=== PATIENT | female | born 1955 | race Caucasian/White ===

== ENCOUNTER → 2016-09-22 | Outpatient (CLI) | payer OTHER ==
[2016-09-22 12:48] LABS: ALT 33 U/L (9-52); AST 27 U/L (14-36); Alkaline Phosphatase 61 U/L (38-126); Anion Gap 9 mmol/L; Blood Urea Nitrogen 25 mg/dL (7-17); Calcium 9.3 mg/dL (8.4-10.2); Carbon Dioxide 30 mmol/L (22-30); Chloride 103 mmol/L (98-107); Glucose 76 mg/dL (74-99); Non-African American GFR(MDRD) >60 (>60 ml/min/1.73 sqM); Potassium 4.5 mmol/L (3.5-5.1); Sodium 142 mmol/L (137-145); Total Bilirubin 0.4 mg/dL (0.2-1.3); Total Protein 6.8 g/dL (6.3-8.2)
== END | disposition home or self-care (01) ==
LOC: LABWHC1 11:25
PROVIDERS: ATTEND Internal Medicine Endocrinology, Diabetes & Metabolism
DX: M81.0 Age-related osteoporosis without current pathological fracture (principal)
CPT/HCPCS: 36415; 80053; 82306; 83970; 84439; 84443

== ENCOUNTER → 2016-09-29 | Outpatient (CLI) | payer OTHER ==
[2016-10-02 20:43] LABS: Creatinine Urine Random 28.4 mg/dL (20.0-320.0)
== END | disposition home or self-care (01) ==
LOC: LABWHC1 14:04
PROVIDERS: ATTEND Internal Medicine Endocrinology, Diabetes & Metabolism
DX: M81.0 Age-related osteoporosis without current pathological fracture (principal); R94.6 Abnormal results of thyroid function studies
CPT/HCPCS: 36415; 82523; 84439; 84443; 84480

== ENCOUNTER → 2016-10-19 | Outpatient (CLI) | payer OTHER ==
--- NOTE | 2016-10-20 11:52 | NM ---
EXAMINATION TYPE: NM thyroid image w uptake DATE OF EXAM: 10/20/2016 11:18 AM COMPARISON: NONE HISTORY: Low TSH level per order. Additional symptoms of tremors, insomnia, palpitations, as well as changes in weight, here, and nails per patient. TECHNIQUE: After the intravenous administration of 11 mCi Tc 99m Sodium Pertechnetate, thyroid imagin g is performed 5 minutes post injection. Thyroid iodine uptake is calculated after the oral administr ation of 11 uCi I-131 capsule. FINDINGS: There is normal distribution of activity throughout the gland. The 4 hour iodine uptake is calculated at 8%, lower limits of normal. (normal range 8-14%). The 24-hour iodine uptake is calcula holden at 27% (normal range 15-35%), in the normal range. IMPRESSION: Normal thyroid scan and uptake.
== END | disposition home or self-care (01) ==
LOC: RADNMMAIN 10:20
PROVIDERS: ATTEND Internal Medicine Endocrinology, Diabetes & Metabolism
DX: R94.6 Abnormal results of thyroid function studies (principal)
CPT/HCPCS: 78014; A9528; A9512

== ENCOUNTER → 2017-02-18 | Outpatient (CLI) | payer OTHER | END | disposition home or self-care (01) | LOC: LABWHC1 13:08 | PROVIDERS: ATTEND Internal Medicine Endocrinology, Diabetes & Metabolism | DX: R94.6 Abnormal results of thyroid function studies (principal) | CPT/HCPCS: 36415; 84439; 84443; 84481 ==

== ENCOUNTER → 2017-03-29 | Outpatient (CLI) | payer OTHER ==
--- NOTE | 2017-03-29 15:38 | US ---
EXAMINATION TYPE: US kidneys/renal and bladder DATE OF EXAM: 03/29/2017 COMPARISON: NONE CLINICAL HISTORY: N30.20 CHR CYSTICITIS,N39.0 UTI. Chronic cystitis, frequent UTI's EXAM MEASUREMENTS: Right Kidney: 7.6 x 3.9 x 4.2 cm Left Kidney: 9.6 x 5.8 x 5.1 cm Right Kidney: measuring smaller than left kidney possibly due to inferior pole obscured by overlying bowel gas, otherwise visualized portions wnl Left Kidney: wnl Bladder: debris seen within dependent portion Bilateral Jets seen: yes IMPRESSION: 1. No suspicious acute findings. 2. Possible debris within the dependent urinary bladder.
== END | disposition home or self-care (01) ==
LOC: RADUSWWP 14:10
PROVIDERS: ATTEND Urology
DX: N39.0 Urinary tract infection, site not specified (principal)
CPT/HCPCS: 76770

== ENCOUNTER → 2017-09-07 | Outpatient (CLI) | payer OTHER ==
[2017-09-07 15:06] LABS: ALT 30 U/L (9-52); AST 26 U/L (14-36); Albumin 4.1 g/dL (3.5-5.0); Alkaline Phosphatase 63 U/L (38-126); Anion Gap 7 mmol/L; Blood Urea Nitrogen 26 mg/dL (7-17); Calcium 9.8 mg/dL (8.4-10.2); Carbon Dioxide 30 mmol/L (22-30); Chloride 100 mmol/L (98-107); Glucose 90 mg/dL (74-99); Potassium 5.2 mmol/L (3.5-5.1); Sodium 137 mmol/L (137-145); Total Bilirubin 0.2 mg/dL (0.2-1.3); Total Protein 6.5 g/dL (6.3-8.2)
[2017-09-07 19:18] LABS: Vitamin D 25 Hydroxy 46.5 ng/mL (30.0-100.0)
[2017-09-07 20:47] LABS: Parathyroid Hormone Intact 41.1 pg/mL (14.0-72.0)
[2017-09-10 17:42] LABS: Creatinine Urine Random 39.5 mg/dL (20.0-320.0)
== END | disposition home or self-care (01) ==
LOC: LABWHC1 14:21
PROVIDERS: ATTEND Internal Medicine Endocrinology, Diabetes & Metabolism
DX: M81.0 Age-related osteoporosis without current pathological fracture (principal)
CPT/HCPCS: 36415; 80053; 82306; 82523; 83970; 84443

== ENCOUNTER → 2018-03-10 | Outpatient (CLI) | payer OTHER ==
[2018-03-10 15:21] LABS: Albumin 4.2 g/dL (3.5-5.0); Calcium 9.8 mg/dL (8.4-10.2); Total Bilirubin 0.3 mg/dL (0.2-1.3); Total Protein 6.4 g/dL (6.3-8.2)
[2018-03-10 19:24] LABS: Vitamin D 25 Hydroxy 37.1 ng/mL (30.0-100.0)
== END | disposition home or self-care (01) ==
LOC: LABWHC1 14:36
PROVIDERS: ATTEND Internal Medicine Endocrinology, Diabetes & Metabolism
DX: E05.90 Thyrotoxicosis, unspecified without thyrotoxic crisis or storm (principal); M81.0 Age-related osteoporosis without current pathological fracture
CPT/HCPCS: 36415; 80053; 82306; 82523; 83970; 84443; 84445

== ENCOUNTER → 2018-07-25 | Outpatient (CLI) | payer OTHER ==
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
== END | disposition home or self-care (01) ==
LOC: RADBDWWP 07:05
PROVIDERS: ATTEND Internal Medicine Endocrinology, Diabetes & Metabolism
DX: M81.0 Age-related osteoporosis without current pathological fracture (principal)
CPT/HCPCS: 77080

== ENCOUNTER → 2018-09-13 | Outpatient (CLI) | payer OTHER ==
[2018-09-14 00:56] LABS: Albumin 4.3 g/dL (3.80-4.90); Albumin/Globulin Ratio 2.26 (1.60-3.17); Anion Gap 9.2 mmol/L (4.00-12.00); Calcium 9.4 mg/dL (8.7-10.3); Carbon Dioxide 29.8 mmol/L (21.6-31.8); Globulin 1.9 g/dL (1.6-3.3); Potassium 5.1 mmol/L (3.5-5.5); Total Bilirubin 0.2 mg/dL (0.3-1.2); Total Protein 6.2 g/dL (6.2-8.2)
[2018-09-14 01:01] LABS: Vitamin D 25 Hydroxy 42.3 ng/mL (30.0-100.0)
[2018-09-14 01:14] LABS: Parathyroid Hormone Intact 33.3 pg/mL (14.0-72.0)
== END ==
LOC: LABWHC1 15:32
PROVIDERS: ATTEND Internal Medicine Endocrinology, Diabetes & Metabolism
DX: M81.0 Age-related osteoporosis without current pathological fracture (principal)
CPT/HCPCS: 36415; 80053; 82306; 82523; 83970; 84443

== ENCOUNTER → 2018-11-24 | Outpatient (CLI) | payer OTHER ==
[2018-11-24 14:35] LABS: HCT 36.2 % (34.0-46.0); HGB 11.9 gm/dL (11.4-16.0); MCH 31.2 pg (25.0-35.0); MCHC 32.8 g/dL (31.0-37.0); Mean Platelet Volume 6.9; Platelet Count 275 k/uL (150-450); RBC 3.82 m/uL (3.80-5.40); RDW 13.6 % (11.5-15.5); WBC 5.2 k/uL (3.8-10.6)
[2018-11-24 14:59] LABS: ALT 31 U/L (9-52); AST 25 U/L (14-36); Albumin 4.6 g/dL (3.5-5.0); Alkaline Phosphatase 76 U/L (38-126); Anion Gap 9 mmol/L; Blood Urea Nitrogen 20 mg/dL (7-17); Calcium 9.9 mg/dL (8.4-10.2); Carbon Dioxide 27 mmol/L (22-30); Chloride 101 mmol/L (98-107); Glucose 87 mg/dL (74-99); Potassium 5.2 mmol/L (3.5-5.1); Sodium 137 mmol/L (137-145); Total Bilirubin 0.4 mg/dL (0.2-1.3)
== END ==
LOC: LABPAT 14:15
PROVIDERS: ATTEND Podiatrist Foot & Ankle Surgery
DX: Z01.812 Encounter for preprocedural laboratory examination (principal)
CPT/HCPCS: 36415; 80053; 85027

== ENCOUNTER 2018-12-07 12:35 | Day surgery (SDC) | payer OTHER ==
[2018-12-02 15:52] VITALS: BMI 28.1
[~2018-12-07 12:35] MED LIST: DEXAMETHASONE SOD PHOSPHATE 10 MG/ML 1 ML VIAL IV ONE; HYDROmorphone 0.5 MG/0.5 ML SYRINGE IVP PRN; LACTATED RINGERS 1,000 ML IV SCH; LIDOCAINE 1% 20 ML VIAL (10MG/ML) FOR IV START INTRADERMA PRN; MIDAZOLAM 2 MG/2 ML VIAL IV PRN; ONDANSETRON 4 MG/2 ML VIAL IVP ONE; Pre Op ABX Message 1 EACH MISC MISCELLANE ONE; SCOPOLAMINE 1.5MG/72HR PATCH TRANSDERM ONE
[2018-12-07 13:41] VITALS: TEMP 97.6
[2018-12-07] MEDS ORDERED: ETHYL CHLORIDE 103.5 ML SPRAY TOPICAL STA (14:11)
[2018-12-07] MEDS ORDERED: PROPOFOL 10 MG/ML 20 ML VIAL IV ONE (14:20)
[2018-12-07] MEDS ORDERED: MIDAZOLAM 2 MG/2 ML VIAL ONE (14:20)
[2018-12-07] MEDS ORDERED: fentaNYL (PF) 50 MCG/ML 2 ML AMP ONE (14:20)
[2018-12-07] MEDS ORDERED: ceFAZolin 1,000 MG VIAL ONE (14:20)
[2018-12-07] MEDS ORDERED: KETAMINE 10 MG/ML 20 ML VIAL ONE (14:20)
[2018-12-07] MEDS ORDERED: SODIUM CHLORIDE 0.9% 50 ML with ceFAZolin 2,000 MG IV ONE ×2 (14:23)
[2018-12-07] MEDS ORDERED: BUPIVACAINE (PF) 0.25% 30 ML VIAL INTRAARTIC ONE (14:34)
[2018-12-07] MEDS ORDERED: LIDOCAINE 1% INJ 10MG/ML (20 ML MDV) SQ ONE ×2 (15:17)
--- NOTE | 2018-12-07 15:59 | P.PCN ---
Date of Procedure: 12/07/18 Preoperative Diagnosis: Bone spur first metatarsal phalangeal joint area left foot line Hallux abductovalgus deformity right foot Postoperative Diagnosis: Same Procedure(s) Performed: 1. Excision of bone spur first metatarsal phalangeal joint area left foot 2. Modified Ram Navid bunionectomy right foot Anesthesia: MAC Surgeon: Antony Max Indications for Procedure: Pain with ambulation and uses shoe gear Operative Findings: Unremarkable
--- NOTE | 2018-12-07 16:07 | P.OP ---
Date of Procedure: 12/07/18 Preoperative Diagnosis: 1. Bone spur first metatarsal phalangeal joint left foot 2. Hallux abductovalgus deformity right foot Postoperative Diagnosis: Same Procedure(s) Performed: 1. Excision of bone spur first metatarsal phalangeal joint left foot 2. Modified Ram Navid bunionectomy right foot Anesthesia: MAC Surgeon: Antony Max Operative Findings: Unremarkable Description of Procedure: On the date of surgery the patient was taken to the operating room in good condition placed on the operating table in a supine position where an IV was sta rted and adequate IV anesthetic agents were utilized anesthesia was then further supplemented with approximately 1 mL of 0.5% plain Marcaine given in an infiltrative block about the first metatarsal phalangeal joint of the left foot and a Centeno block about the first ray complex of the patient's right foot Patient's feet and ankles were then prepped and draped in the usual aseptic manner Over heavy web roll padding ankle tourniquets had been placed above the malleoli of each ankle. At this point in time attention was directed to the patient's left ankle where the patient's left foot and ankle were elevated and exsanguinated of blood utilizing an Esmarch bandage and after approximately 1 minutes. A time the ankle tourniquet to the patient's left ankle was inflated to approximately 250 mmHg At this point in time attention was directed to the dorsal medial side of the first metatarsal phalangeal joint where an approximately 2 cm linear incision was made the incision was deepened via sharp dissection down through the level of the subcutaneous tissue layers all neurovascular structures encountered were identified isolated and were retracted and any bleeding vessels were clamped electrocauterized dissection was then carried deep down to the level of the capsule and periosteal structures overlying the dorsal medial side of the first metatarsal head of the patient's left foot via light palpation I could palpate a small bone spur protruding dorsally and an incision was made in the capsule and periosteal structures directly overlying this bony prominence. When the small bone spur was dissected free an osteotome and mallet was used to remove the bone spur. Surgical site was flushed with copious amounts of sterile saline solution some periosteal structures were coaptated and maintained utilizing 3-0 Vicryl simple interrupted suture as well as the subcutaneous tissue layers. The skin was then coaptated and maintained utilizing 4-0 nylon simple interrupted suture. Adaptic Kerlix fluffs four-inch conformer 4 inch Coban was then used to form a compression dressing and the ankle tourniquet to the patient's left ankle was deflated adequate hemostatic return was seen in all digits the patient's left foot. At this time attention was directed to the patient's right foot where the patient's right foot was elevated and exsanguinated of blood utilizing an Esmarch bandage and after approximately 3 minutes. A time the ankle tourniquet to the right ankle was inflated to approximately 250 mmHg at this time attention was directed to the dorsal aspect of the first metatarsal phalangeal joint where an approximately 6 cm dorsal linear incision was made the incision was deepened via sharp dissection down through the level of the subcutaneous tissue layers all neurovascular structures encountered were identified isolated and were retracted and any bleeding vessels were clamped electrocauterized. Throughout the surgical procedure copious amounts sterile saline solution was used to irrigate the surgical site. Dissection was then carried deep down to level of the capsular and periosteal structures overlying the first metatarsal phalangeal joint these were incised utilizing an inverted L incision and underscored and retracted from the underlying bone. Some periosteal structures were then incised in line with the longitudinal axis of the shaft of the proximal phalanx and underscored and retracted from the underlying bone. Lysing oscillating bone saw the hyperostosis present on the medial side of the first metatarsal head was then resected flush in line with the shaft of the first metatarsal and removed in total from the surgical site. Oscillating bone saw was then used to create a dorsal to plantar wedge osteotomy of the proximal phalanx slightly distal to the mid shaft area the encompass wedge of bone was removed in total from the surgical site. When fashioning the wedge of bone care was taken not to disrupt the lateral cortex surgical drill holes were then fashioned on either side of the osteotomy site in such a manner that they met with then an utilizing double strength 28-gauge monofilament stainless steel wire the osteotomy site was fixated and anatomically closed in opposed position. Again copious amounts of sterile saline solution was used to irrigate the surgical site. Periosteal Structures Were Then Coaptated and Maintained Utilizing Combination of 201 3-0 Vicryl Simple Interrupted Suture. Subcutaneous Tissues Were Coaptated and Maintained Utilizing 3-0 Vicryl Simple Interrupted Suture and the Skin Was Then Closed Utilizing 4-0 Nylon Simple Interrupted Suture Adaptic Kerlix Fluffs Four-Inch Conformer 4 Inch Coban Was Used To Form a Compression Dressing and the Ankle Tourniquet to the Patient's Right Foot Was Deflated area adequate hemostatic return was seen in all digits the patient's right foot and the hallux was seen to maintain a rectus position prior to applying the dressings. The patient tolerated the surgery and the anesthesia well and was taken recovery room in good postoperative condition.
[2018-12-07 16:08] VITALS: RESP 18
[2018-12-07] MEDS ORDERED: Acetaminophen-Codeine 300-30mg TAB PO ONE (16:43)
[2018-12-07 16:59] VITALS: PULSE 90
[2018-12-07 17:08] VITALS: BP 142/72
== END 2018-12-07 17:40 | disposition home or self-care (01) ==
LOC: OR 12:35
PROVIDERS: ATTEND Podiatrist Foot & Ankle Surgery
DX: M20.11 Hallux valgus (acquired), right foot (principal); M77.52 Other enthesopathy of left foot and ankle; M47.892 Other spondylosis, cervical region; G43.909 Migraine, unspecified, not intractable, without status migrainosus; I10 Essential (primary) hypertension; M48.02 Spinal stenosis, cervical region; F41.1 Generalized anxiety disorder; F33.1 Major depressive disorder, recurrent, moderate; M19.90 Unspecified osteoarthritis, unspecified site; K21.9 Gastro-esophageal reflux disease without esophagitis; M81.0 Age-related osteoporosis without current pathological fracture; E66.3 Overweight; Z68.28 Body mass index [BMI] 28.0-28.9, adult; Z87.891 Personal history of nicotine dependence; Z87.828 Personal history of other (healed) physical injury and trauma; Z87.440 Personal history of urinary (tract) infections; Z79.1 Long term (current) use of non-steroidal anti-inflammatories (NSAID); Z79.899 Other long term (current) drug therapy; Z88.1 Allergy status to other antibiotic agents; Z88.5 Allergy status to narcotic agent; Z88.8 Allergy status to other drugs, medicaments and biological substances
CPT/HCPCS: 88304; 88311; 28299; 28108; J2250; J1100; J2405; J0690; J2001; J3010; J2704

== ENCOUNTER → 2019-03-16 | Outpatient (CLI) | payer OTHER ==
[2019-03-17 00:22] LABS: African American GFR (CKD) 78.9 (60.0-200.0); Albumin 4.2 g/dL (3.80-4.90); Albumin/Globulin Ratio 2.47 (1.60-3.17); Anion Gap 4.2 mmol/L (4.00-12.00); BUN/Creat Ratio 14.44 Ratio (12.00-20.00); Calcium 9.2 mg/dL (8.7-10.3); Carbon Dioxide 31.8 mmol/L (21.6-31.8); Globulin 1.7 g/dL (1.6-3.3); Potassium 4.5 mmol/L (3.5-5.5); Total Bilirubin 0.2 mg/dL (0.2-1.2); Total Protein 5.9 g/dL (6.2-8.2)
== END | disposition home or self-care (01) ==
LOC: LABWHC1 13:45
PROVIDERS: ATTEND Internal Medicine Endocrinology, Diabetes & Metabolism
DX: M81.0 Age-related osteoporosis without current pathological fracture (principal)
CPT/HCPCS: 36415; 80053; 82306; 82523; 84443

== ENCOUNTER → 2019-08-11 | Outpatient (CLI) | payer BC ==
--- NOTE | 2019-08-11 18:30 | BD ---
EXAMINATION TYPE: Axial Bone Density DATE OF EXAM: 08/11/2019 COMPARISON: NONE CLINICAL HISTORY: 64 YR OLD FEMALE....ICD-10 CODE: N95.1 POST MENOPAUSAL, M81.0 OSTEOPOROSIS Height: 58.5 Weight: 130 FRAX RISK QUESTIONS: Family History (Parent hip fracture): YES Glucocorticoids (More than 3mos): YES (Ex: prednisone, prednisolone, methylprednisolone, dexamethasone, and hydrocortisone). RISK FACTORS HISTORY OF: NO FX SINCE THE AGE OF 50 SURG. TO NECK PART OF SPINE ONLY Family History of Osteoporosis: YES, HER MOTHER AND BROTHER, MOTHER WITH HIP FX Active: NO USES CANE, DIFFICULTY WALKING Postmenopausal woman: YES, IN HER 52 YRS OLD Lost more than 2 inches in height since high school: YES Frequent falls: UNSTEADY, USES CANE Hyperparathyroidism: NO Adrenal Insufficiency: NO MEDICATIONS: Prednisone or other steroids: YES, ON AND OFF FOR PAIN AND INFLAMMATION TO SPINE, WITH INJECTIONS ALS O Osteoporosis Medications: YES, PROLIA, FOR ABOUT 18 YRS OSTEOPOROSIS TREATMENT Additional Medications: BP MEDS, WELLBUTRIN, XANAX, REFLUX MEDS, VIT D AND CALCIUM, LYRICA, MELOXICAM Additional History: HYPERTENSION, REFLUX EXAM MEASUREMENTS: Bone mineral densitometry was performed using the [employer] System. Bone mineral density as measured about the Lumbar spine is: ----- L1-L4(G/cm2): 1.382 T Score Values are as follows: ----- L1: 2.2 ----- L2: 0.8 ----- L3: 0.7 ----- L4: 2.7 ----- L1-L4: 1.7 Bone mineral density FIRST DEXA STUDY AT [facility] Bone mineral density about the R hip (g/cm2): 0.949 Bone mineral density about the L hip (g/cm2): 0.774 T Score values are as follows: -----R Neck: 0.4 -----L Neck: -0.7 -----R Total: -0.5 -----L Total: -1.9 THIS IS HER FIRST DEXA STUDY AT [facility] FRAX%s: THERE IS A 22.9% CHANCE FOR A MAJOR OSTEOPOROTIC FX AND A 0.8% FOR HIP.....PROBABILITY FOR FX IN 10 YRS TIME IMPRESSION: Osteopenia (T Score between -2.5 and -1). There is slightly increased risk of fracture and the patient may be considered for treatment. Re-Screen 2-5 years. NOTE: T-SCORE=SD OF THE YOUNG ADULT MEAN.
== END | disposition home or self-care (01) ==
LOC: RADBDWWP 15:53
PROVIDERS: ATTEND Family Medicine
DX: M85.88 Other specified disorders of bone density and structure, other site (principal); N95.1 Menopausal and female climacteric states
CPT/HCPCS: 77080

== ENCOUNTER → 2019-08-25 | Outpatient (CLI) | payer BC ==
[2019-08-25 20:37] LABS: African American GFR (CKD) 90.3 (60.0-200.0); Albumin 4.4 g/dL (3.80-4.90); Albumin/Globulin Ratio 2.75 (1.60-3.17); Anion Gap 9.5 mmol/L (4.00-12.00); Calcium 9.1 mg/dL (8.7-10.3); Carbon Dioxide 26.5 mmol/L (21.6-31.8); Globulin 1.6 g/dL (1.6-3.3); Non-African American GFR(CKD) 77.9 (60.0-200.0); Potassium 4.6 mmol/L (3.5-5.5); Total Bilirubin 0.3 mg/dL (0.2-1.2)
== END | disposition home or self-care (01) ==
LOC: LABWHC1 12:52
PROVIDERS: ATTEND Internal Medicine Endocrinology, Diabetes & Metabolism
DX: M81.0 Age-related osteoporosis without current pathological fracture (principal)
CPT/HCPCS: 36415; 80053; 82306; 82523; 83970; 84443; 84681

== ENCOUNTER 2019-10-24 04:28 | Emergency (ER) | payer BC ==
[2019-10-24 04:39] VITALS: RESP 16; TEMP 98
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
--- NOTE | 2019-10-24 05:15 | CT ---
EXAMINATION TYPE: CT brain dennis benz DATE OF EXAM: 10/24/2019 COMPARISON: None HISTORY: Patient presents with head and neck pain after fall. CT DLP: 1322.20 mGycm Automated exposure control for dose reduction was used. Ventricles have normal size. There is no mass effect nor midline shift. There is no sign of intracran ial hemorrhage. The calvarium is intact. There is large right frontal scalp hematoma. Skull base is intact. Cervical vertebra have normal alignment. There is old anterior fusion surgery f rom C4 to C6. There is spurring anteriorly at C6-7. The facet joints are intact. There is no evidence of cervical spine fracture. IMPRESSION: Previous cervical spine fusion surgery. Spondylotic changes. No fracture seen. No acute intracranial abnormality. Right frontal scalp hematoma.
[2019-10-24 05:31] VITALS: BP 176/94; PULSE 75
== END 2019-10-24 05:34 | disposition home or self-care (01) ==
LOC: EC 04:28
DX: S09.90XA Unspecified injury of head, initial encounter (principal); K21.9 Gastro-esophageal reflux disease without esophagitis; I10 Essential (primary) hypertension; F41.9 Anxiety disorder, unspecified; F32.9 Major depressive disorder, single episode, unspecified; Z79.1 Long term (current) use of non-steroidal anti-inflammatories (NSAID); Z79.899 Other long term (current) drug therapy; Z88.1 Allergy status to other antibiotic agents; Z88.8 Allergy status to other drugs, medicaments and biological substances; Z87.891 Personal history of nicotine dependence; W18.09XA Striking against other object with subsequent fall, initial encounter
CPT/HCPCS: 70450; 72125; 99283

== ENCOUNTER → 2020-03-06 | Outpatient (CLI) | payer BC ==
[2020-03-06 19:58] LABS: African American GFR (CKD) 90.3 (60.0-200.0); Albumin 4.5 g/dL (3.80-4.90); Albumin/Globulin Ratio 2.14 (1.60-3.17); Anion Gap 7.3 mmol/L (4.00-12.00); BUN/Creat Ratio 12.5 Ratio (12.00-20.00); Calcium 10.1 mg/dL (8.7-10.3); Carbon Dioxide 27.7 mmol/L (21.6-31.8); Globulin 2.1 g/dL (1.6-3.3); Non-African American GFR(CKD) 77.9 (60.0-200.0); Potassium 4.6 mmol/L (3.5-5.5); Total Bilirubin 0.3 mg/dL (0.2-1.2); Total Protein 6.6 g/dL (6.2-8.2)
== END | disposition home or self-care (01) ==
LOC: LABWHC1 13:47
PROVIDERS: ATTEND Internal Medicine Endocrinology, Diabetes & Metabolism
DX: M81.0 Age-related osteoporosis without current pathological fracture (principal)
CPT/HCPCS: 36415; 80053; 82306; 82523

== ENCOUNTER → 2020-08-23 | Outpatient (CLI) | payer MEDICARE ==
[2020-08-23 19:43] LABS: African American GFR (CKD) 77.8 (60.0-200.0); Albumin 5.1 g/dL (3.80-4.90); Albumin/Globulin Ratio 2.55 (1.60-3.17); BUN/Creat Ratio 32.22 Ratio (12.00-20.00); Calcium 10.3 mg/dL (8.7-10.3); Non-African American GFR(CKD) 67.1 (60.0-200.0); Potassium 4.8 mmol/L (3.5-5.5); Total Bilirubin 0.5 mg/dL (0.3-1.2); Total Protein 7.1 g/dL (6.2-8.2)
== END | disposition home or self-care (01) ==
LOC: LABWHC1 11:23
PROVIDERS: ATTEND Physician Assistant
DX: Z51.81 Encounter for therapeutic drug level monitoring (principal); Z79.891 Long term (current) use of opiate analgesic
CPT/HCPCS: 36415; 80053

== ENCOUNTER → 2020-09-19 | Outpatient (CLI) | payer MEDICARE ==
[2020-09-20 01:34] LABS: African American GFR (CKD) 77.8 (60.0-200.0); Albumin 4.5 g/dL (3.80-4.90); Albumin/Globulin Ratio 3.21 (1.60-3.17); Anion Gap 10.2 mmol/L (4.00-12.00); BUN/Creat Ratio 22.22 Ratio (12.00-20.00); Calcium 9.1 mg/dL (8.7-10.3); Carbon Dioxide 28.8 mmol/L (21.6-31.8); Globulin 1.4 g/dL (1.6-3.3); Non-African American GFR(CKD) 67.1 (60.0-200.0); Potassium 5.4 mmol/L (3.5-5.5); Total Bilirubin 0.2 mg/dL (0.2-1.2); Total Protein 5.9 g/dL (6.2-8.2)
== END | disposition home or self-care (01) ==
LOC: LABWHC1 13:59
PROVIDERS: ATTEND Physician Assistant
DX: M81.0 Age-related osteoporosis without current pathological fracture (principal); Z79.891 Long term (current) use of opiate analgesic
CPT/HCPCS: 36415; 80053; 82523

== ENCOUNTER → 2020-09-27 | Outpatient (CLI) | payer MEDICARE ==
--- NOTE | 2020-09-27 14:31 | BD ---
EXAMINATION TYPE: Axial Bone Density DATE OF EXAM: 09/27/2020 COMPARISON: NONE CLINICAL HISTORY: Height: 59 Weight: 136.3 FRAX RISK QUESTIONS: Alcohol (3 or more units per day): no Family History (Parent hip fracture): yes Glucocorticoids (More than 3mos): no (Ex: prednisone, prednisolone, methylprednisolone, dexamethasone, and hydrocortisone). History of Fracture in Adulthood: no Secondary Osteoporosis: 1. Type 1 Diabetes: no 2. Hyperthyroidism: no 3. Menopause before 45: no 4. Malnutrition: no 5. Chronic liver disease: no Rheumatoid Arthritis: no Current Tobacco Use: no RISK FACTORS HISTORY OF: Surgery to Spine/Hip(right/left)/Wrist (right/left): no Family History of Osteoporosis: yes Active: sometimes Diet low in dairy products/other sources of calcium: yes Postmenopausal woman: 2006 Lost more than 2 inches in height since high school: no MEDICATIONS: Osteoporosis Medications: stopped Prolia 1 year ago Additional History: EXAM MEASUREMENTS: Bone mineral densitometry was performed using the [employer] System. Bone mineral density as measured about the Lumbar spine is: ----- L1-L4(G/cm2): 1.223 T Score Values are as follows: ----- L2: -0.7 ----- L3: -0.6 ----- L4: 1.7 ----- L1-L4: 0.4 Bone mineral density has: decreased -11.4 % since study of: 08.11.2019 Bone mineral density about the R hip (g/cm2): 0.875 Bone mineral density about the L hip (g/cm2): 0.634 T Score values are as follows: -----R Neck: -2.0 -----L Neck: -2.9 -----R Total: -1.0 -----L Total: -2.7 Bone mineral density has: decreased -10.0 % since study of: 08.11.2019 IMPRESSION: Osteoporosis (T Score less than -2.5). There is increased fracture risk and therapy is usually indicated based on age. Re-Screen 1-2 years. NOTE: T-SCORE=SD OF THE YOUNG ADULT MEAN.
== END | disposition home or self-care (01) ==
LOC: RADBDWWP 07:41
PROVIDERS: ATTEND Internal Medicine Endocrinology, Diabetes & Metabolism
DX: M81.0 Age-related osteoporosis without current pathological fracture (principal)
CPT/HCPCS: 77080

== ENCOUNTER → 2020-11-07 | Outpatient (CLI) | payer MEDICARE ==
[~2020-11-07] MED LIST changes: +DENOSUMAB 60 MG/ML 1 ML SYRINGE SQ ONE; -DEXAMETHASONE SOD PHOSPHATE 10 MG/ML 1 ML VIAL IV ONE; -HYDROmorphone 0.5 MG/0.5 ML SYRINGE IVP PRN; -LACTATED RINGERS 1,000 ML IV SCH; -LIDOCAINE 1% 20 ML VIAL (10MG/ML) FOR IV START INTRADERMA PRN; -MIDAZOLAM 2 MG/2 ML VIAL IV PRN; -ONDANSETRON 4 MG/2 ML VIAL IVP ONE; -Pre Op ABX Message 1 EACH MISC MISCELLANE ONE; -SCOPOLAMINE 1.5MG/72HR PATCH TRANSDERM ONE
[2020-11-07 09:10] VITALS: BP 138/84; PULSE 91; RESP 16; TEMP 97.8
== END ==
LOC: PROCWHC3 08:57
PROVIDERS: ATTEND Internal Medicine Endocrinology, Diabetes & Metabolism
DX: M81.0 Age-related osteoporosis without current pathological fracture (principal)
CPT/HCPCS: 96372; J0897

== ENCOUNTER → 2021-01-03 | Outpatient (CLI) | payer MEDICARE, OTHER ==
--- NOTE | 2021-01-03 12:55 | CT ---
EXAMINATION TYPE: CT hip RT wo con DATE OF EXAM: 01/03/2021 COMPARISON: None HISTORY: right hip pain CT DLP: 246.90 mGycm Automated exposure control for dose reduction was used. Unenhanced CT of the right hip was performed with bone and soft tissue window settings submitted. FINDINGS: There is no evidence for fracture or dislocation. No osseous lesion is identified. Tmdw-vk-xzvahilc d egenerative joint space narrowing is noted. There is acetabular spurring noted as well as spur format ion arising from the greater trochanter. No evidence for soft tissue mass or joint effusion. Vascular calcifications are demonstrated. IMPRESSION: CHANGES OF OSTEOARTHRITIS.
== END | disposition home or self-care (01) ==
LOC: RADCTMAIN 12:20
PROVIDERS: ATTEND Family Medicine
DX: M16.11 Unilateral primary osteoarthritis, right hip (principal)

== ENCOUNTER → 2021-01-20 | Outpatient (CLI) | payer MEDICARE, OTHER ==
--- NOTE | 2021-01-20 09:15 | CT ---
EXAMINATION TYPE: CT shoulder RT wo con DATE OF EXAM: 01/20/2021 COMPARISON: None. HISTORY: Right shoulder pain traumatic arthropathy right shoulder. CT DLP: 218.8 mGycm Automated exposure control for dose reduction was used. FINDINGS: Acromioclavicular joint shows arbk-mt-qsjafxhv narrowing greatest along the inferior posterior aspect . There is moderate superior capsular hypertrophy causing slight bulging of the superior skin surface . Tiny 2 mm ossific fragmentation from the distal acromion is present. Humeral head is high riding consistent with chronic rotator cuff tear. There is lsue-oo-iqbewbny narr owing with moderate-sized inferior medial humeral head spur. There is mild to moderate generalized at rophy of the supraspinatus muscle bulk and more mild atrophy of the infraspinatus muscle bulk. Findin gs are consistent with chronic rotator cuff tear. There is subchondral cystic change in the superior lateral aspect of the humeral head. Some anterior positioning is identified on axial images. Visualized right lung is clear. Visualized ribs are intact. IMPRESSION: As above. Suspect chronic rotator cuff tears.
== END | disposition home or self-care (01) ==
LOC: RADCTMAIN 06:35
PROVIDERS: ATTEND Orthopaedic Surgery
DX: M19.011 Primary osteoarthritis, right shoulder (principal)

== ENCOUNTER → 2021-01-30 | Outpatient (CLI) | payer MEDICARE, OTHER ==
--- NOTE | 2021-01-30 09:00 | MR ---
EXAMINATION TYPE: MR shoulder RT wo con DATE OF EXAM: 01/30/2021 COMPARISON: 06/11/2015, CT 01/20/2021 HISTORY: Rt shoulder pain TECHNIQUE: Multiplanar, multisequence imaging of the right shoulder is performed without contrast. FINDINGS: Rotator Cuff: There is a full-thickness supraspinatus tendon tear with approximately 3.9 cm of tendon retraction. There is a near full-thickness tear of the infraspinatus tendon with only a few fibers i ntact. Partial-thickness tear of the infraspinatus tendon is noted. There is a full thickness subscap ularis tendon tear with approximately 2.7 cm of tendon retraction. Acromioclavicular Joint: There are degenerative changes of the acromioclavicular joint without os acr omiale or subacromial spur. Glenohumeral Joint: There are full-thickness articular cartilage defects of the glenohumeral joint with high riding humer al head and osteophytosis. There is a glenohumeral joint effusion. Labrum: There is irregularity of the posteroinferior labrum, likely a degenerative type tear. Biceps Tendon: The long head of biceps is torn and retracted with edema. Bone marrow signal: No focal abnormal marrow signal is appreciated. Other: There is fatty atrophy of the subscapularis and supraspinatus muscles. IMPRESSION: 1. Full-thickness tears of the supraspinatus and subscapularis tendons with tendon retraction and fat ty atrophy of the muscle. 2. Long head biceps tendon is torn and retracted. 3. Near full-thickness tear of the infraspinatus tendon. 4. Degenerative changes of the acromioclavicular and glenohumeral joints with degenerative type torri l tear and glenohumeral joint effusion. High riding humeral head.
== END | disposition home or self-care (01) ==
LOC: RADMRIMAIN 07:41
PROVIDERS: ATTEND Student in an Organized Health Care Education/Training Program
DX: M75.111 Incomplete rotator cuff tear or rupture of right shoulder, not specified as traumatic (principal); M62.511 Muscle wasting and atrophy, not elsewhere classified, right shoulder; M19.011 Primary osteoarthritis, right shoulder

== ENCOUNTER → 2021-03-06 | Outpatient (CLI) | payer MEDICARE, OTHER ==
[2021-03-07 02:55] LABS: African American GFR (CKD) 77.8 (60.0-200.0); Albumin 4.1 g/dL (3.80-4.90); Albumin/Globulin Ratio 1.95 (1.60-3.17); Anion Gap 9.4 mmol/L (4.00-12.00); BUN/Creat Ratio 18.89 Ratio (12.00-20.00); Calcium 9.3 mg/dL (8.7-10.3); Carbon Dioxide 27.6 mmol/L (21.6-31.8); Globulin 2.1 g/dL (1.6-3.3); Non-African American GFR(CKD) 67.1 (60.0-200.0); Potassium 4.4 mmol/L (3.5-5.5); Total Bilirubin 0.3 mg/dL (0.3-1.2); Total Protein 6.2 g/dL (6.2-8.2)
== END | disposition home or self-care (01) ==
LOC: LABWHC1 15:21
PROVIDERS: ATTEND Internal Medicine Endocrinology, Diabetes & Metabolism
DX: M81.0 Age-related osteoporosis without current pathological fracture (principal)
CPT/HCPCS: 36415; 80053; 82306; 82523; 83970; 84443

== ENCOUNTER → 2021-05-15 | Outpatient (CLI) | payer MEDICARE, OTHER ==
[~2021-05-15] MED LIST changes: +DENOSUMAB 60 MG/ML 1 ML SYRINGE SQ NR; -DENOSUMAB 60 MG/ML 1 ML SYRINGE SQ ONE
[2021-05-15 12:53] VITALS: BP 147/80; PULSE 97; RESP 16; TEMP 98.5
== END ==
LOC: PROCWHC3 12:43
PROVIDERS: ATTEND Internal Medicine Endocrinology, Diabetes & Metabolism
DX: M81.0 Age-related osteoporosis without current pathological fracture (principal); Z87.891 Personal history of nicotine dependence; Z88.1 Allergy status to other antibiotic agents; Z88.8 Allergy status to other drugs, medicaments and biological substances
CPT/HCPCS: 96372; J0897

== ENCOUNTER → 2021-06-04 | Outpatient (CLI) | payer MEDICARE, OTHER ==
[2021-06-04 15:42] LABS: HCT 33.5 % (34.0-46.0); HGB 10.7 gm/dL (11.4-16.0); MCH 31.5 pg (25.0-35.0); MCHC 32.1 g/dL (31.0-37.0); Mean Platelet Volume 7.6; Platelet Count 325 k/uL (150-450); RBC 3.42 m/uL (3.80-5.40); RDW 13.8 % (11.5-15.5); WBC 11.4 k/uL (3.8-10.6)
[2021-06-04 15:50] LABS: INR 0.9 (<1.2); Partial Thromboplastin Time 22.3 sec (22.0-30.0); Prothrombin Time 9.7 sec (9.0-12.0)
[2021-06-04 15:51] LABS: Albumin 4.7 g/dL (3.5-5.0); Calcium 10.1 mg/dL (8.4-10.2); Potassium 4.1 mmol/L (3.5-5.1); Total Bilirubin 0.3 mg/dL (0.2-1.3); Total Protein 7.4 g/dL (6.3-8.2)
[2021-06-04 16:26] LABS: Appearance,Urine Clear (Clear); Bilirubin,Urine Negative (Negative); Blood,Urine Negative (Negative); Color,Urine Light Yellow; Glucose,Urine (UA) Negative (Negative); Ketones,Urine Negative (Negative); Leukocyte Esterase,Urine Negative (Negative); Nitrite,Urine Negative (Negative); PH, Urine 6.5 (5.0-8.0); Protein,Urine Negative (Negative); Specific Gravity,Urine 1.012 (1.001-1.035); Urobilinogen,Urine <2.0 mg/dL (<2.0)
== END | disposition home or self-care (01) ==
LOC: LABPAT 14:49
PROVIDERS: ATTEND Orthopaedic Surgery Sports Medicine
DX: Z01.818 Encounter for other preprocedural examination (principal); R00.0 Tachycardia, unspecified; Z79.01 Long term (current) use of anticoagulants
CPT/HCPCS: 36415; 80053; 81003; 85027; 85610; 85730; 87070; 93005

== ENCOUNTER 2021-06-19 11:18 | Day surgery (SDC) | payer MEDICARE, OTHER ==
[~2021-06-19 11:18] MED LIST changes: +ACETAMINOPHEN TAB 500 MG TAB PO PRN; -DENOSUMAB 60 MG/ML 1 ML SYRINGE SQ NR; +GABAPENTIN 300 MG CAP PO PRN; +HYDROmorphone 0.5 MG/0.5 ML SYRINGE IVP PRN; +LIDOCAINE 1% (10MG/ML) FOR IV START INTRADERMA PRN; +ONDANSETRON 4 MG/2 ML VIAL IVP PRN; +TRANEXAMIC ACID 1,000 MG in SODIUM CHLORIDE 0.9% 100 ML IVPB PRN
[2021-06-19] MEDS ORDERED: fentaNYL (PF) 50 MCG/ML 2 ML AMP IVP ONE (13:03)
[2021-06-19] MEDS ORDERED: MIDAZOLAM 2 MG/2 ML VIAL IVP ONE (13:03)
[2021-06-19] MEDS ORDERED: METOCLOPRAMIDE 5 MG/ML 2 ML VIAL IVP PRN (13:04)
[2021-06-19] MEDS ORDERED: hydrOXYzine pamoate 25 MG CAP PO PRN (13:04)
[2021-06-19] MEDS ORDERED: diphenhydrAMINE 25 MG CAP PO PRN (13:04)
[2021-06-19] MEDS ORDERED: SENNOSIDES-DOCUSATE SODIUM 1 EACH TAB PO PRN (13:04)
[2021-06-19] MEDS ORDERED: TEMAZEPAM 15 MG CAP PO PRN (13:04)
[2021-06-19] MEDS ORDERED: HYDROmorphone 0.5 MG/0.5 ML SYRINGE IVP PRN (13:04)
[2021-06-19] MEDS ORDERED: HYDROmorphone 0.2 MG/1 ML SYRINGE IVP PRN (13:04)
[2021-06-19] MEDS ORDERED: PROCHLORPERAZINE SUPPOSITORY 25 MG SUPP RECTAL PRN (13:04)
[2021-06-19] MEDS ORDERED: HYDROcodone/APAP 7.5-325MG 1 EACH TAB PO PRN (13:11)
--- NOTE | 2021-06-19 13:15 | P.ANPRN ---
Procedure Note - Anesthesia - Nerve Block Performed Right Interscalene Single Time Out Performed: Yes (9248) Date of Procedure: 06/19/21 (1025) Procedure Start Time: 13:03 Procedure Stop Time: 13:09 Location of Patient: PreOp Indication: Acute Post-Operative Pain, Requested by Surgeon Specifically requested for management of pain by DrNoemy: Kelvin Granda Sedation Type: Sedate with meaningful contact maintained Preparation: Sterile Prep Position: Supine Catheter: None Needle Types: Pajunk Needle Gauge: 21 Ultrasound used to visualize needle placement: Yes Ultrasound used to observe medication spread: Yes Injectate: 0.5% Ropivacaine (see comment for volume) (25cc) Blood Aspirated: No Pain Paresthesia on Injection Noted: No Resistance on Injection: Normal Image Stored and Saved: Yes Events: Uneventful and Well Tolerated
[2021-06-19] MEDS ORDERED: DEXAMETHASONE SOD PHOSPHATE 4 MG/ML 1 ML VIAL IVP ONE (13:17)
[2021-06-19] MEDS: LACTATED RINGERS 1,000 ML IV SCH ×2 (13:17→18:08)
[2021-06-19] MEDS ORDERED: NEOSTIGMINE 1 MG/ML 10 ML VIAL ONE (13:27)
[2021-06-19] MEDS ORDERED: ROPIVACAINE 5 MG/ML 30 ML VIAL ONE (13:27)
[2021-06-19] MEDS ORDERED: SUCCINYLCHOLINE CHLORIDE 100 MG/5 ML SYR IV ONE (13:27)
[2021-06-19] MEDS ORDERED: MIDAZOLAM 2 MG/2 ML VIAL ONE (13:27)
[2021-06-19] MEDS ORDERED: LIDOCAINE 1% INJ 10MG/ML (20 ML MDV) ONE (13:27)
[2021-06-19] MEDS ORDERED: SODIUM CHLORIDE 0.9% 100 ML BAG ONE (13:27)
[2021-06-19] MEDS ORDERED: fentaNYL (PF) 50 MCG/ML 2 ML AMP ONE (13:27)
[2021-06-19] MEDS ORDERED: GLYCOPYRROLATE 0.2 MG/ML 2 ML VIAL ONE (13:27)
[2021-06-19] MEDS ORDERED: ROCURONIUM 10 MG/ML (5 ML VIAL) IV ONE (13:27)
[2021-06-19] MEDS ORDERED: PHENYLEPHRINE-0.9% NACL SYG 1,000 MCG/10 ML SYRINGE ONE (13:27)
[2021-06-19] MEDS ORDERED: PROPOFOL 10 MG/ML 20 ML VIAL IV ONE (13:27)
[2021-06-19] MEDS ORDERED: TRANEXAMIC ACID 1,000 MG/10 ML VIAL ONE (13:27)
[2021-06-19] MEDS ORDERED: ceFAZolin 3,000 MG in SODIUM CHLORIDE 0.9% IRRIGATIO 3,000 ML IRRIGATION ONE (13:55)
[2021-06-19] MEDS ORDERED: VANCOMYCIN 1,000 MG VIAL MISCELLANE ONE (14:30)
[2021-06-19] MEDS ORDERED: LACTATED RINGERS 1,000 ML IV ONE (14:37)
--- NOTE | 2021-06-19 15:46 | XR ---
EXAMINATION TYPE: XR shoulder limited RT DATE OF EXAM: 06/19/2021 COMPARISON: None HISTORY: Postop right shoulder replacement TECHNIQUE: AP right shoulder FINDINGS: Right shoulder prosthesis is present with glenoid and humeral components. Postsurgical soft tissue changes are present. Catheters present. No acute fractures are present post placement. IMPRESSION: 1. No acute fracture post right shoulder replacement
--- NOTE | 2021-06-19 15:51 | OP ---
OPERATIVE REPORT DATE OF PROCEDURE: 06/19/2021. SURGEON: Kelvin Granda M.D. [employer] TECHNICIAN: Wil Browne PA-C PREOPERATIVE DIAGNOSIS: Right shoulder advanced rotator cuff arthropathy. POSTOPERATIVE DIAGNOSIS: Right shoulder advanced rotator cuff arthropathy. OPERATION: Right reverse total shoulder arthroplasty. ANESTHESIA: General endotracheal. ESTIMATED BLOOD LOSS: 100 mL. DRAINS: One deep drain. COMPLICATIONS: None apparent. DISPOSITION: Post-Anesthesia Care Unit. INDICATIONS: Isabel is a 66-year-old female with longstanding right shoulder pain. Workup including x-rays revealed advanced rotator cuff arthropathy of the right shoulder. At this point it is felt that she has failed conservative management. She would like to proceed with operative intervention. The risks of the procedure were discussed with her in detail. These risks include but are not limited to risk of infection, nerve damage, bleeding, pain, and a risk of instability in the shoulder, loosening of the implants and deep infection. There is also a small risk of deep vein thrombosis which could lead to fatal pulmonary embolism. The patient understands the risks. All of her questions with regard to the risks of the procedure were answered to her satisfaction. Appropriate informed consent was obtained. DESCRIPTION OF THE PROCEDURE: The patient was identified in the preoperative holding area. Surgical site was marked by both the patient and myself. She was given 2 grams of Ancef IV for prophylactic purposes. She was then transported to the operative suite. She was placed supine on the operating room table. General anesthetic was then administered and dosed per the anesthesia department without apparent complication. Examination under anesthesia was then performed of the right shoulder. She had passive elevation to 120 degrees. External rotation at the side was to 70 degrees. The patient was then placed into the beach chair position, well padded in preparation for surgery. Great care was taken to ensure that her cervical spine was in neutral alignment, well padded and maintained that way throughout the operative procedure. Great care was also taken to ensure that her legs were appropriately padded as well. The patient's right upper extremity was then prepped and draped in the usual sterile fashion. A standard surgical pause was undertaken to ensure that we were operating on the correct site and that appropriate preoperative antibiotics had been given. All staff in the room were in agreement and we proceeded. The acromion, AC joint, clavicle and coracoid were marked with a surgical pen. A planned incision starting at the level of the clavicle and extending distally over the deltopectoral interval approximately 1 cm lateral to the coracoid was marked with a surgical pen. The incision was then made with a 10 blade scalpel. Dissection was carried down sharply through the overlying fascia. The deltopectoral interval was then identified at the level of the clavicle. A small band retractor was then placed under the proximal deltoid. I then released the deltoid fascia on the lateral aspect of the cephalic vein. The vein was then preserved and left in its bed medially. The cephalic vein was then protected throughout the entire case. I then identified the clavipectoral fascia. This was incised proximally at the level of the coracoacromial ligament. The coracoacromial ligament was left intact. I then used my finger to spread the interval between the conjoint tendon and the subscapularis. I felt for the axillary nerve, which was readily palpable. I then cleared the subacromial and subdeltoid spaces of bursal and scar tissue. I then utilized a Chavarria retractor to hold the deltoid and expose the humeral head. The anterior capsule was intact, but the subscapularis had been chronically torn. I then proceeded to release the anterior inferior shoulder capsule. The course of the biceps tendon was identified. The capsule was then released in a lazy-S fashion approximately 1 cm medial to the biceps tendon. I then continued to release the capsule along the inferior neck in a vertical fashion to approximately the 6 o'clock position. Great care was taken to ensure that the capsule was always visualized as it was released as to avoid injuring the axillary nerve. I then brought a [place] housing quality standard inspector with the arm externally rotated and abducted. I continued to release the capsule inferomedially to approximately the 4 o'clock position. The inferior osteophytes were then removed. This was done with a rongeur. I then proceeded with preparation of the humerus. I removed all the goat's batres osteophytes. I then removed the subchondral plate from the superior aspect of the humeral head utilizing a large rongeur. I then utilized a starting reamer to gain access to the humeral canal. This was approximately 1 cm medial to the previous rotator cuff insertion and 1 cm posterior to the bicipital groove. I then prepared the humeral canal with hand reaming. I started with a 6 mm reamer and was only able to progress to a 7 mm reamer, where firm resistance was encountered. The reamer handle was then left in place. Then I utilized a humeral resection guide set at 30 degrees of retrotorsion. The cutting block was then set at the insertion of the rotator cuff. I then proceeded to osteotomize the head utilizing an oscillating saw. I removed the resection guide and completed the osteotomy. I then proceeded with trial stem placement. I broached with a size 6 broach and then a size 7 broach. A size 7 broach was tight and the 6 broach was fairly tight going in, so I left the 6 mm broach in. At this point, I did release the biceps tendon. The biceps was tenotomized at the level of the superior labrum. The shoulder was completely devoid of any rotator cuff attachment. The Bhattman retractor was then placed on the posterior glenoid rim. The arm was placed in approximately 80 degrees of abduction and in slight flexion on the [place] stand. I proceeded to remove the hypertrophic labrum to definitively identify the actual glenoid. She did have some anterior and inferior osteophytes. These were removed from the glenoid utilizing the rongeur. I then utilized a mini base plate starting guide. The central pin was placed in the center of the glenoid with approximately 10 degrees of inferior tilt. I then reamed with the mini reamer. As little reaming was done as possible as to seat the base plate securely and to preserve as much subchondral bone as possible. I then placed the real mini base plate. This was then impacted into the glenoid. The 25 mm central screw was then placed. The screw had an excellent purchase in bone. I was able to rotate her scapula through the screwdriver when it was fully seated. I then proceeded to place peripheral locking screws. I started with the inferior locking screw. This was a 5 x 25 mm screw. The posterior screw was a 5 x 15 mm screw and the superior screw was a 20 x 5 mm screw. She had a very small glenoid. The anterior screw in my opinion would have been fairly free-floating, so I did not place the anterior locking screw. I then had the assistance representative open a standard 36 mm glenosphere. I did set the offset to slightly inferiorly rotate the ball. The glenosphere was then impacted onto the mini base plate after the Goins taper had been dried. I then proceeded to trial with the real glenosphere . A standard tray and a standard poly trial were then placed. This was a fairly difficult reduction but not overly difficult. It was very stable once it was reduced. It was taken through full range of motion and was stable through full range of motion. There was no impingement noted. The conjoint tendon was of appropriate tension. The shoulder was then carefully re-dislocated. I had the assistance representative open a size 6 Biomet mini stem, a standard tray and a standard polyethylene. The stem was then impacted into the canal in approximately 30 degrees of retrotorsion. The poly was placed onto the tray on the back table and then was impacted on a dry Goins taper onto the real stem. The shoulder was then reduced again. It was a fairly difficult reduction. She was taken through a full range of motion. It was very stable. There was no impingement noted. The conjoint tendon had appropriate tension. I then also felt for the axillary nerve, which was readily palpable and uninjured. At this point time we proceeded with closure. The wound was thoroughly irrigated with sterile saline solution with antibiotic added. A deep drain was placed and brought out superiorly away from the incision. Approximately 500 mg of vancomycin powder was then placed deep. The deltopectoral interval was then closed with 0 Vicryl interrupted suture. The subcutaneous tissue was again thoroughly irrigated with sterile saline solution with antibiotic added. The remaining 500 mg of vancomycin powder was then placed subcutaneously. Subcutaneous tissue was closed with 2-0 Vicryl interrupted suture. The skin was closed with a running 3-0 Quill suture. Dermabond was applied to the incision. A sterile compressive dressing was then applied. The patient's right upper extremity was placed into a standard sling. All sponge and needle counts were deemed correct prior to closure. The patient tolerated the procedure without apparent complication. She was transferred to the recovery room in stable condition. MMODL / IJN: [id number] /
[2021-06-19] MEDS ORDERED: ACETAMINOPHEN TAB 325 MG TAB PO PRN (19:29)
[2021-06-19] MEDS ORDERED: ALPRAZolam 1 MG TAB PO PRN (19:29)
[2021-06-19] MEDS: buPROPion XL 150 MG TAB.ER.24H PO SCH (21:22)
[2021-06-19] MEDS: PREGABALIN 100 MG CAP PO SCH (21:22)
--- NOTE | 2021-06-19 21:47 | CONS ---
CONSULTATION I am covering for Dr. Bateman. DATE OF SERVICE: 06/19/2021. REASON FOR CONSULTATION: Advice regarding hypertension, GERD, and multiple medical issues requested by Orthopedic Surgery. HISTORY OF PRESENT ILLNESS: This 66-year-old woman with a past medical history of hypertension and DJD, being followed by Dr. Bateman in the outpatient setting, underwent right shoulder arthroplasty by Dr. Granda. The patient tolerated the procedure well. There is no history of any fever, rigors or chills. No history of headache, loss of consciousness, seizures at this time. PAST MEDICAL HISTORY: History of GERD, hypertension, history of DJD, history of spinal cord injury. MEDICATIONS: Medications prior to admission include vitamin D3 25 mcg p.o. daily, calcium, Tylenol, Wellbutrin XL, ibuprofen, Lyrica, multivitamin, Prolia, Xanax, Cozaar, doxycycline. Doses are noted. ALLERGIES: BIAXIN, MACROBID, CYMBALTA. FAMILY HISTORY: History of skin cancer in the family. SOCIAL HISTORY: Previous history of smoking. No current smoking or alcohol intake. REVIEW OF SYSTEMS: ENT: No diminished hearing. No diminished vision. Minimal facial swelling post surgery. CARDIOVASCULAR SYSTEM: No angina, palpitations. RESPIRATORY SYSTEM: No cough, hemoptysis. GI: No nausea, vomiting, diarrhea. : No dysuria. NERVOUS SYSTEM: No numbness, weakness. ALLERGY/IMMUNOLOGY: No asthma or hay fever. MUSCULOSKELETAL: As mentioned earlier. HEMATOLOGY/ONCOLOGY: No history of anemia. ENDOCRINE: No history of diabetes or hypothyroidism. CONSTITUTIONAL: As mentioned earlier. DERMATOLOGY: Negative. RHEUMATOLOGY: Negative. PSYCHIATRY: As mentioned earlier. PHYSICAL EXAMINATION: Patient alert and oriented x3. Pulse 70, blood pressure 133/77, respirations 16, temperature 98.4, pulse ox 96% on room air, HEENT: Conjunctivae normal. Minimal facial swelling present. NECK: No jugular venous distention. CARDIOVASCULAR: S1, S2 muffled. RESPIRATION: Breath sounds diminished at the bases. No rhonchi. No crackles. ABDOMEN: Soft, nontender. No mass palpable. LEGS: No edema. No swelling. NERVOUS SYSTEM: Diffusely weak. EXAMINATION OF THE RIGHT SHOULDER: Status post arthroplasty. LABS: COVID-19 is negative. ASSESSMENT: 1. Status post right shoulder arthroplasty. 2. Hypertension. 3. Gastroesophageal reflux disease. 4. History of degenerative joint disease. 5. History of spinal cord injury. 6. History of partial paralysis of the left leg. 7. History of lumbar epidural mass. 8. History of appendectomy. 9. History of back surgery. 10.Anxiety, depression. 11.History of nicotine dependence. RECOMMENDATIONS AND DISCUSSION: In this 66-year-old woman who presented with multiple complex medical issues, we will monitor the patient closely, continue the current medications. Resume the home medications. DVT prophylaxis. Incentive spirometry. Will follow the patient closely with you. Patient may be asked to follow up with Dr. Bateman after discharge. Thank you, Dr. Granda, for letting us participate in the care of this patient. MMODL / IJN: [id number] /
[2021-06-20] MEDS: HYDROcodone/APAP 7.5-325MG 1 EACH TAB PO PRN ×4 (01:42→17:33)
[2021-06-20] MEDS: LACTATED RINGERS 1,000 ML IV SCH ×4 (01:49→15:19)
[2021-06-20] MEDS: HYDROmorphone 0.5 MG/0.5 ML SYRINGE IVP PRN ×3 (04:57→14:00)
[2021-06-20] MEDS: PREGABALIN 100 MG CAP PO SCH ×2 (09:57→21:41)
[2021-06-20] MEDS: MULTIVITAMINS, THERA 1 EACH TAB PO SCH (09:57)
[2021-06-20] MEDS: CALCIUM CARB-VIT D 500 MG-5 MCG TAB PO SCH (09:57)
[2021-06-20] MEDS: CHOLECALCIFEROL 25 MCG (1000 IU) TABLET PO SCH (09:57)
[2021-06-20] MEDS: CALCIUM CARBONATE 500 MG CHEWABLE PO SCH (09:57)
[2021-06-20] MEDS: buPROPion XL 150 MG TAB.ER.24H PO SCH ×2 (09:57→21:41)
[2021-06-20] MEDS: LOSARTAN 25 MG TAB PO SCH (09:57)
[2021-06-20 10:38] LABS: Basophils # (A) 0.01 X 10*3/uL (0.00-0.10); Basophils % (A) 0.1 %; Eosinophils # (A) 0.01 X 10*3/uL (0.04-0.35); Eosinophils % (A) 0.1 %; HGB 9.5 g/dL (12.0-15.0); Lymphocytes # (A) 1.54 X 10*3/uL (0.90-5.00); Lymphocytes % (A) 22.2 %; MCH 31.9 pg (27.0-32.0); MCHC 31.7 g/dL (32.0-37.0); MCV 100.7 fL (80.0-97.0); Mean Platelet Volume 9.1 fL (9.5-12.2); Monocytes # (A) 0.69 X 10*3/uL (0.20-1.00); Monocytes % (A) 9.9 %; Neutrophils # (A) 4.68 X 10*3/uL (1.80-7.70); Neutrophils % (A) 67.4 %; Platelet Count 257 X 10*3/uL (140-440); RBC 2.98 X 10*6/uL (4.10-5.20); RDW 15.9 % (11.5-14.5); WBC 6.95 X 10*3/uL (4.50-10.00)
--- NOTE | 2021-06-20 10:43 | P.DS ---
Providers Expected date of discharge: 06/20/21 Attending physician: Kelvin Granda Consults: 06/19/21 13:04 Consult Physician Routine Consulting Provider: Carlton Bateman Consult Reason/Comments: post op medical management Do you want consulting provider notified?: Yes Primary care physician: Carlton Bateman - Discharge Diagnosis(es) (1) Osteoarthritis of right shoulder Patient was admitted to the OR on 06/19/2021 to undergo a right total shoulder arthroplasty. She had failed conservative measures as an outpatient and desired to proceed with elective surgery after given informed consent. She underwent the above procedure which she tolerated well without complication. Postoperative hospital course has remained without complication. On day of discharge she is afebrile, vital signs stable, labs within acceptable ranges, tolerating by mouth meds and diet, voiding without difficulty, positive flatus, denies abdominal pain or calf pain, pain is controlled on oral pain medication and has no new co mplaints. Wound is benign, neurovascular status is intact, calves are soft and nontender, abdomen soft and nontender. Review of systems is negative for numbness, tingling, fever, chills, chest pain, shortness of breath, nausea, vomiting, dizziness, headaches, slurred speech or other. Current Visit: Yes Status: Acute Procedures: Right TSA Patient Condition at Discharge: Good Plan - Discharge Summary Discharge Rx Participant: No New Discharge Prescriptions: New Doxycycline Hyclate 100 mg PO BID #10 tab Docusate [Colace] 100 mg PO BID #60 capsule HYDROcodone/APAP 7.5-325MG [[place] 7.5-325] 1 - 2 each PO Q6HR PRN #42 tab PRN Reason: Pain Ondansetron [Zofran] 4 mg PO Q8HR PRN #21 tab PRN Reason: Nausea No Action Multivitamins, Thera [Multivitamin (formulary)] 1 tab PO DAILY Calcium 500/1000 Vit D 1.5 tab PO DIRECTED Denosumab [Prolia] 60 mg SQ DIRECTED ALPRAZolam [Xanax] 1 mg PO TID PRN PRN Reason: Anxiety Losartan Potassium [Cozaar] 25 mg PO QAM Pregabalin 100 mg PO BID Cholecalciferol [Vitamin D3 (25 Mcg = 1000 Iu)] 25 mcg PO DAILY Calcium Carbonate [Calcium] 1 tab PO DAILY buPROPion HCL [Wellbutrin XL] 150 mg PO BID Ibuprofen 200 - 400 mg PO Q6H PRN PRN Reason: Pain Acetaminophen [Tylenol] 325 - 650 mg PO Q6H PRN PRN Reason: Pain Discharge Medication List ALPRAZolam [Xanax] 1 mg PO TID PRN 12/02/18 [History] Calcium 500/1000 Vit D 1.5 tab PO DIRECTED 12/02/18 [History] Denosumab [Prolia] 60 mg SQ DIRECTED 12/02/18 [History] Losartan Potassium [Cozaar] 25 mg PO QAM 12/02/18 [History] Multivitamins, Thera [Multivitamin (formulary)] 1 tab PO DAILY 12/02/18 [History] Acetaminophen [Tylenol] 325 - 650 mg PO Q6H PRN 06/18/21 [History] Calcium Carbonate [Calcium] 1 tab PO DAILY 06/18/21 [History] Cholecalciferol [Vitamin D3 (25 Mcg = 1000 Iu)] 25 mcg PO DAILY 06/18/21 [History] Ibuprofen 200 - 400 mg PO Q6H PRN 06/18/21 [History] Pregabalin 100 mg PO BID 06/18/21 [History] buPROPion HCL [Wellbutrin XL] 150 mg PO BID 06/18/21 [History] Doxycycline Hyclate 100 mg PO BID #10 tab 06/19/21 [Rx] Docusate [Colace] 100 mg PO BID #60 capsule 06/20/21 [Rx] HYDROcodone/APAP 7.5-325MG [[place] 7.5-325] 1 - 2 each PO Q6HR PRN #42 tab 06/20/21 [Rx] Ondansetron [Zofran] 4 mg PO Q8HR PRN #21 tab 06/20/21 [Rx] Follow up Appointment(s)/Referral(s): Kelvin Granda MD [STAFF PHYSICIAN] - 10 Days Activity/Diet/Wound Care/Special Instructions: Non Weight Bearing Maintain sling May shower after 3 days if no bleeding Keep wound clean and dry Take meds as directed F/U with Dr. Granda in office Discharge Disposition: HOME SELF-CARE
[2021-06-20] MEDS: ONDANSETRON 4 MG/2 ML VIAL IVP PRN (13:55)
[2021-06-21] MEDS: ONDANSETRON 4 MG/2 ML VIAL IVP PRN (00:16)
[2021-06-21] MEDS: HYDROcodone/APAP 7.5-325MG 1 EACH TAB PO PRN ×2 (00:16→06:26)
[2021-06-21] MEDS: LACTATED RINGERS 1,000 ML IV SCH ×2 (02:19)
[2021-06-21 08:29] VITALS: BP 121/69; PULSE 97; RESP 16; TEMP 98.4
--- NOTE | 2021-06-21 09:59 | P.PN ---
Progress Note - Text Progress Note Date: 06/21/21 Patient was admitted to the OR on 06/19/2021 to undergo a right total shoulder arthroplasty. She had failed conservative measures as an outpatient and desired to proceed with elective surgery after given informed consent. She underwent the above procedure which she tolerated well without complication. Postoperative hospital course has remained without complication. On day of discharge she is afebrile, vital signs stable, labs within acceptable ranges, tolerating by mouth meds and diet, voiding without difficulty, positive flatus, denies abdominal pain or calf pain, pain is controlled on oral pain medication and has no new complaints. Wound is benign, neurovascular status is intact, calves are soft and nontender, abdomen soft and nontender. Review of systems is negative for numbness, tingling, fever, chills, chest pain, shortness of breath, nausea, vomiting, dizziness, headaches, slurred speech or other. The patient's pain is better controlled on postoperative day #2. She may be discharged to home today in good condition. Please see previous discharge summary and [facility] rec for accurate list of home medications.
[2021-06-21] MEDS: CHOLECALCIFEROL 25 MCG (1000 IU) TABLET PO SCH (10:01)
[2021-06-21] MEDS: CALCIUM CARB-VIT D 500 MG-5 MCG TAB PO SCH (10:01)
[2021-06-21] MEDS: LOSARTAN 25 MG TAB PO SCH (10:01)
[2021-06-21] MEDS: PREGABALIN 100 MG CAP PO SCH (10:01)
[2021-06-21] MEDS: MULTIVITAMINS, THERA 1 EACH TAB PO SCH (10:01)
[2021-06-21] MEDS: CALCIUM CARBONATE 500 MG CHEWABLE PO SCH (10:01)
[2021-06-21] MEDS: buPROPion XL 150 MG TAB.ER.24H PO SCH (10:02)
--- NOTE | 2021-06-21 12:37 | P.PN ---
Subjective Progress Note Date: 06/20/21 Principal diagnosis: Severe osteoarthritis right shoulder Status post right total shoulder arthroplasty 66-year-old female patient with history of hypertension and severe DJD admitted to the hospital for elective right shoulder arthroplasty; patient is status post right surgery; POD #1 Objective - Vital Signs Vital signs: Vital Signs Temp 98.5 F 06/20/21 08:00 Pulse 75 06/20/21 08:00 Resp 16 06/20/21 08:00 BP 110/66 06/20/21 08:00 Pulse Ox 94 L 06/20/21 08:00 Intake & Output 06/19/21 06/20/21 06/20/21 18:59 06:59 18:59 Intake Total 1287 Output Total 100 70 30 Balance 1187 -70 -30 Weight 54.3 kg Intake: IV 1051 Oral 236 Output: Drainage 70 30 Right Shoulder 70 30 Estimated Blood Loss 100 Other: Voiding Method Toilet # Voids 2 - Exam - Constitutional General appearance: Present: average body habitus, cooperative, no acute distress - EENT Eyes: Present: anicteric sclerae, EOMI, PERRLA, normal appearance ENT: Present: hearing grossly normal, normal oropharynx Ears: bilateral: normal - Neck Neck: Present: normal ROM. Absent: lymphadenopathy, rigidity, thyromegaly Carotids: negative: bruit present Thyroid: bilateral: normal size, negative: enlarged, nodule - Respiratory Respiratory: bilateral: CTA, negative: rales, rhonchi, wheezing - Cardiovascular Rhythm: regular Heart sounds: normal: S1, S2 Abnormal Heart Sounds: Absent: systolic murmur, diastolic murmur - Gastrointestinal General gastrointestinal: Present: normal bowel sounds, soft. Absent: distended, organomegaly, tenderness - Genitourinary Genitourinary Comment(s): deferred - Integumentary Integumentary: Present: normal turgor. Absent: jaundiced, rash, ulcer - Neurologic Neurologic: Present: CNII-XII intact. Absent: focal deficits - Musculoskeletal Musculoskeletal: Present: gait normal, strength equal bilaterally - Psychiatric Psychiatric: Present: A&O x's 3, appropriate affect, intact judgment & insight - Labs CBC & Chem 7: 06/20/21 06:14 Labs: Abnormal Lab Results - Last 24 Hours (Table) 06/20/21 Range/Units 06:14 RBC 2.98 L (4.10-5.20) X 10*6/uL Hgb 9.5 L (12.0-15.0) g/dL Hct 30.0 L (37.2-46.3) % MCV 100.7 H (80.0-97.0) fL MCHC 31.7 L (32.0-37.0) g/dL RDW 15.9 H (11.5-14.5) % MPV 9.1 L (9.5-12.2) fL Eosinophils # 0.01 L (0.04-0.35) X 10*3/uL Assessment and Plan Assessment: 1. Severe osteoarthritis right shoulder; status post right total shoulder arthroplasty; POD #1 - Patient is planned to be discharged home when stable 2. Hypertension; losartan 25 mg daily 3. Gastroesophageal reflux disease; Protonix 40 mg daily 4. Severe DJD; continue with home dose of [place] 7.5 mg every 4 hours when necessary with IV Dilaudid 0.2 mg IV every 3 hours when necessary for breakthrough pain 5. Anxiety/depression; Xanax 1 mg by mouth 3 times a day when necessary DVT prophylaxis; SCDs CODE STATUS; full code
--- NOTE | 2021-06-22 19:10 | P.PN ---
Subjective Progress Note Date: 06/21/21 Principal diagnosis: Severe osteoarthritis right shoulder Status post right total shoulder arthroplasty 66-year-old female patient with history of hypertension and severe DJD admitted to the hospital for elective right shoulder arthroplasty; patient is status post right surgery; POD #1 06/21/2021 66-year-old female patient admitted with severe right shoulder osteoarthritis failing conservative measures; patient underwent right total shoulder arthroplasty on 06/19/2021; patient reports fair pain control Vital signs are reviewed and are stable Labs are reviewed from 06/20/2021 and are stable with hemoglobin of 9.5 Patient is medically stable to be discharged once cleared by surgery Objective - Vital Signs Vital signs: Vital Signs Temp 98.4 F 06/21/21 08:28 Pulse 97 06/21/21 08:28 Resp 16 06/21/21 08:28 BP 121/69 06/21/21 08:28 Pulse Ox 98 06/21/21 08:28 Intake & Output 06/20/21 06/21/21 06/21/21 18:59 06:59 18:59 Output Total 30 Balance -30 Output: Drainage 30 Right Shoulder 30 Other: Voiding Method Toilet Toilet # Voids 1 2 - Exam - Constitutional General appearance: Present: average body habitus, cooperative, no acute distress - EENT Eyes: Present: anicteric sclerae, EOMI, PERRLA, normal appearance ENT: Present: hearing grossly normal, normal oropharynx Ears: bilateral: normal - Neck Neck: Present: normal ROM. Absent: lymphadenopathy, rigidity, thyromegaly Carotids: negative: bruit present Thyroid: bilateral: normal size, negative: enlarged, nodule - Respiratory Respiratory: bilateral: CTA, negative: rales, rhonchi, wheezing - Cardiovascular Rhythm: regular Heart sounds: normal: S1, S2 Abnormal Heart Sounds: Absent: systolic murmur, diastolic murmur - Gastrointestinal General gastrointestinal: Present: normal bowel sounds, soft. Absent: distended, organomegaly, tenderness - Genitourinary Genitourinary Comment(s): deferred - Integumentary Integumentary: Present: normal turgor. Absent: jaundiced, rash, ulcer - Neurologic Neurologic: Present: CNII-XII intact. Absent: focal deficits - Musculoskeletal Musculoskeletal: Present: gait normal, strength equal bilaterally - Psychiatric Psychiatric: Present: A&O x's 3, appropriate affect, intact judgment & insight - Labs CBC & Chem 7: 06/20/21 06:14 Assessment and Plan Assessment: 1. Severe osteoarthritis right shoulder; status post right total shoulder arthroplasty; POD #1 - Patient is planned to be discharged home when stable 2. Hypertension; losartan 25 mg daily 3. Gastroesophageal reflux disease; Protonix 40 mg daily 4. Severe DJD; continue with home dose of [place] 7.5 mg every 4 hours when necessary with IV Dilaudid 0.2 mg IV every 3 hours when necessary for breakthro ugh pain 5. Anxiety/depression; Xanax 1 mg by mouth 3 times a day when necessary DVT prophylaxis; SCDs CODE STATUS; full code
== END 2021-06-21 12:40 | disposition home or self-care (01) ==
LOC: OR 11:18 → 4SSUR 15:01 → OR 06-21 12:40
PROVIDERS: ATTEND Orthopaedic Surgery Sports Medicine
DX: M19.011 Primary osteoarthritis, right shoulder (principal); M25.711 Osteophyte, right shoulder; F32.A Depression, unspecified; M41.9 Scoliosis, unspecified; R26.81 Unsteadiness on feet; I10 Essential (primary) hypertension; R45.0 Nervousness; Z20.822 Contact with and (suspected) exposure to COVID-19; G83.14 Monoplegia of lower limb affecting left nondominant side; K21.9 Gastro-esophageal reflux disease without esophagitis; R42 Dizziness and giddiness; F41.1 Generalized anxiety disorder; J44.9 Chronic obstructive pulmonary disease, unspecified; Z82.49 Family history of ischemic heart disease and other diseases of the circulatory system; Z87.891 Personal history of nicotine dependence; Z80.8 Family history of malignant neoplasm of other organs or systems; Z98.49 Cataract extraction status, unspecified eye; Z87.81 Personal history of (healed) traumatic fracture; Z98.1 Arthrodesis status; Z98.890 Other specified postprocedural states; Z90.49 Acquired absence of other specified parts of digestive tract; Z97.2 Presence of dental prosthetic device (complete) (partial); Z81.1 Family history of alcohol abuse and dependence; Z82.61 Family history of arthritis; Z82.5 Family history of asthma and other chronic lower respiratory diseases; Z79.899 Other long term (current) drug therapy; Z88.1 Allergy status to other antibiotic agents; Z79.1 Long term (current) use of non-steroidal anti-inflammatories (NSAID); Z88.8 Allergy status to other drugs, medicaments and biological substances; Z91.048 Other nonmedicinal substance allergy status
CPT/HCPCS: 23472; 64415; 76942; 85025; 88300; 87635; 73020; C1776; J2250; J3370; J1100; J2710; J0690 ×3; J2405 ×3; J2001; J3010; J2795; J2370; J0330; J2704; J1170

== ENCOUNTER → 2021-09-24 | Outpatient (CLI) | payer MEDICARE, OTHER ==
[2021-09-24 20:39] LABS: ALT 19 U/L (8-44); AST 21 U/L (13-35); African American GFR (CKD) 106.3 (60.0-200.0); Alkaline Phosphatase 65 U/L (41-126); BUN/Creat Ratio 20.54 Ratio (12.00-20.00); Blood Urea Nitrogen 13.7 mg/dL (9.0-27.0); Calcium 9.2 mg/dL (8.7-10.3); Chloride 103 mmol/L (96-109); Globulin 2.4 g/dL (1.6-3.3); Glucose 93 mg/dL (70-110); Non-African American GFR(CKD) 91.7 (60.0-200.0); Potassium 4.7 mmol/L (3.5-5.5); Sodium 139 mmol/L (135-145); Total Bilirubin <0.15 mg/dL (0.30-1.20); Total Protein 6.4 g/dL (6.2-8.2)
== END | disposition home or self-care (01) ==
LOC: LABWHC1 13:43
PROVIDERS: ATTEND Internal Medicine Endocrinology, Diabetes & Metabolism
DX: M81.0 Age-related osteoporosis without current pathological fracture (principal)
CPT/HCPCS: 36415; 80053; 82306; 83970; 84443

== ENCOUNTER → 2022-03-26 | Outpatient (CLI) | payer MEDICARE, OTHER ==
[2022-03-27 00:24] LABS: ALT 15 U/L (8-44); AST 19 U/L (13-35); African American GFR (CKD) 92.1 (60.0-200.0); Albumin 4.1 g/dL (3.8-4.9); Albumin/Globulin Ratio 2.25 (1.60-3.17); Alkaline Phosphatase 63 U/L (41-126); BUN/Creat Ratio 23.14 Ratio (12.00-20.00); Calcium 9.5 mg/dL (8.7-10.3); Carbon Dioxide 27.6 mmol/L (20.0-27.5); Chloride 101 mmol/L (96-109); Globulin 1.8 g/dL (1.6-3.3); Glucose 96 mg/dL (70-110); Non-African American GFR(CKD) 79.5 (60.0-200.0); Potassium 4.9 mmol/L (3.5-5.5); Sodium 138 mmol/L (135-145); Total Bilirubin <0.15 mg/dL (0.30-1.20); Total Protein 5.9 g/dL (6.2-8.2)
== END | disposition home or self-care (01) ==
LOC: LABWHC1 15:22
PROVIDERS: ATTEND Internal Medicine Endocrinology, Diabetes & Metabolism
DX: M81.0 Age-related osteoporosis without current pathological fracture (principal)
CPT/HCPCS: 36415; 80053; 82306; 82523

== ENCOUNTER → 2022-08-14 | Outpatient (CLI) | payer MEDICARE, OTHER ==
[2022-08-14 22:27] LABS: Basophils # (A) 0.01 X 10*3/uL (0.00-0.10); Basophils % (A) 0.1 %; Eosinophils # (A) 0 X 10*3/uL (0.04-0.35); Eosinophils % (A) 0 %; HCT 37.8 % (37.2-46.3); HGB 11.9 g/dL (12.0-15.0); Immature Grans, Automated 0.4 %; Lymphocytes # (A) 0.87 X 10*3/uL (0.90-5.00); Lymphocytes % (A) 11.3 %; MCH 30.7 pg (27.0-32.0); MCHC 31.5 g/dL (32.0-37.0); MCV 97.4 fL (80.0-97.0); Mean Platelet Volume 9.6 fL (9.5-12.2); Monocytes # (A) 0.58 X 10*3/uL (0.20-1.00); Monocytes % (A) 7.6 %; NRBC Per 100 WBC 0 /100 WBCS (0.0-0.0); Neutrophils # (A) 6.19 X 10*3/uL (1.80-7.70); Neutrophils % (A) 80.6 %; Platelet Count 262 X 10*3/uL (140-440); RBC 3.88 X 10*6/uL (4.10-5.20); RDW 13.7 % (11.5-14.5); WBC 7.68 X 10*3/uL (4.50-10.00)
[2022-08-14 23:24] LABS: C Reactive Protein <0.30 mg/dL (0.00-0.80); Rheumatoid Factor, Qnt <10 IU/mL (0-15); Uric Acid 3.3 mg/dL (2.9-7.7)
[2022-08-14 23:31] LABS: Erythrocyte Sedimentation Rate 6 mm/Hr (0-30)
[2022-08-15 11:00] LABS: HLA B27 NEGATIVE
== END | disposition home or self-care (01) ==
LOC: LABWHC1 15:57
PROVIDERS: ATTEND Orthopaedic Surgery Adult Reconstructive Orthopaedic Surgery
DX: M25.762 Osteophyte, left knee (principal)
CPT/HCPCS: 36415; 84550; 85025; 85652; 86038; 86039; 86140; 86431; 86812

== ENCOUNTER → 2022-10-23 | Outpatient (CLI) | payer MEDICARE, OTHER ==
--- NOTE | 2022-10-23 12:25 | BD ---
EXAMINATION TYPE: Axial Bone Density DATE OF EXAM: 10/23/2022 CLINICAL HISTORY: 67 years old Female. ICD-10 CODE: M81.0 AGE-RELATED OSTEOPOROSIS W/O CURRENT PATHO LO Height: 58 in Weight: 111 lbs FRAX RISK QUESTIONS: Family History (Parent hip fracture): yes mother History of Fracture in Adulthood: rt scapula fx age 66, toe fx age 19, rib fx age 64 RISK FACTORS HISTORY OF: Family History of Osteoporosis: yes mother and brother Active: moderate Postmenopausal woman: age 51 Take estrogen and/or progesterone medications: not now How long: took control for 3 years MEDICATIONS: Osteoporosis Medications: prolia injections every 6 months Which medication: prolia fosamax How Lon years Additional Medications: calcium, high blood pressure meds, depression meds, pain meds, muscle relaxer , anxiety meds, lupus meds, EXAM MEASUREMENTS: Bone mineral densitometry was performed using the [employer] System. Bone mineral density as measured about the Lumbar spine is: ----- L1-L4(G/cm2): 1.314 T Score Values are as follows: ----- L1: 1.8 ----- L2: -0.4 ----- L3: 0.3 ----- L4: 2.5 ----- L1-L4: 1.1 Z Score Values are as follows: ----- L1: 3.9 ----- L2: 1.7 ----- L3: 2.5 ----- L4: 4.6 ----- L1-L4: 3.2 Bone mineral density has: Increased 7.4% since study of: 09/27/2020 Bone mineral density about the R hip (g/cm2): 0.906 Bone mineral density about the L hip (g/cm2): 0.673 T Score values are as follows: -----R Neck: -1.8 -----L Neck: -2.7 -----R Total: -0.8 -----L Total: -2.7 Z Score values are as follows: -----R Neck: 0.1 -----L Neck: -0.8 -----R Total: 0.9 -----L Total: -1.0 Bone mineral density has: Increased 1.8% since study of: 09/27/2020 FRAX%s: The graph provided illustrates a 37.8 chance for a major osteoporotic fx and a 9.7 chance for the hips probability for fx in 10 years time. IMPRESSION: Osteoporosis (T Score less than -2.5). There is increased fracture risk and therapy is usually indicated based on age. Re-Screen 1-2 years. NOTE: T-SCORE=SD OF THE YOUNG ADULT MEAN.
== END | disposition home or self-care (01) ==
LOC: RADBDWWP 11:22
PROVIDERS: ATTEND Internal Medicine Endocrinology, Diabetes & Metabolism
DX: M81.0 Age-related osteoporosis without current pathological fracture (principal)
CPT/HCPCS: 77080

== ENCOUNTER → 2023-02-15 | Outpatient (CLI) | payer MEDICARE, OTHER ==
[2023-02-15 16:27] LABS: ALT 15 U/L (8-44); AST 18 U/L (13-35); Albumin 4.3 d/dL (3.8-4.9); Albumin/Globulin Ratio 2.26 Ratio (1.60-3.17); Alkaline Phosphatase 67 U/L (41-126); BUN/Creat Ratio 10.82 Ratio (12.00-20.00); Blood Urea Nitrogen 11.9 mg/dL (9.0-27.0); Calcium 9.7 mg/dL (8.7-10.3); Carbon Dioxide 28.4 mmol/L (21.6-31.8); Chloride 104 mmol/L (96-109); Globulin 1.9 d/dL (1.6-3.3); Glucose 101 mg/dL (70-110); Potassium 3.8 mmol/L (3.5-5.5); Sodium 143 mmol/L (135-145); Total Bilirubin 0.3 mg/dL (0.3-1.2); Total Protein 6.2 d/dL (6.2-8.2)
== END | disposition home or self-care (01) ==
LOC: LABWHC1 11:44
PROVIDERS: ATTEND Internal Medicine Endocrinology, Diabetes & Metabolism
DX: M81.0 Age-related osteoporosis without current pathological fracture (principal)
CPT/HCPCS: 36415; 80053; 82306; 82523; 83970; 84443

== ENCOUNTER → 2023-08-16 | Outpatient (CLI) | payer MEDICARE, OTHER ==
[2023-08-17 03:51] LABS: ALT 13 U/L (8-44); AST 21 U/L (13-35); Albumin 4.6 g/dL (3.8-4.9); Albumin/Globulin Ratio 2.42 Ratio (1.60-3.17); Alkaline Phosphatase 60 U/L (41-126); BUN/Creat Ratio 21.14 Ratio (12.00-20.00); Blood Urea Nitrogen 14.8 mg/dL (9.0-27.0); Calcium 9.8 mg/dL (8.7-10.3); Carbon Dioxide 27.6 mmol/L (21.6-31.8); Chloride 105 mmol/L (96-109); Globulin 1.9 g/dL (1.6-3.3); Glucose 90 mg/dL (70-110); Sodium 143 mmol/L (135-145); Total Bilirubin 0.2 mg/dL (0.3-1.2); Total Protein 6.5 g/dL (6.2-8.2)
== END | disposition home or self-care (01) ==
LOC: LABWHC1 12:25
PROVIDERS: ATTEND Internal Medicine Endocrinology, Diabetes & Metabolism
DX: M81.0 Age-related osteoporosis without current pathological fracture (principal)
CPT/HCPCS: 36415; 80053; 82306; 82523; 83970; 84443

== ENCOUNTER → 2023-10-14 | Outpatient (CLI) | payer MEDICARE, OTHER ==
[2023-10-14 17:03] LABS: Basophils # (A) 0.02 X 10*3/uL (0.00-0.10); Basophils % (A) 0.4 %; Eosinophils # (A) 0.11 X 10*3/uL (0.04-0.35); Eosinophils % (A) 2.1 %; HCT 38.7 % (37.2-46.3); HGB 11.8 g/dL (12.0-15.0); Lymphocytes # (A) 1.31 X 10*3/uL (0.90-5.00); Lymphocytes % (A) 24.8 %; MCH 30.4 pg (27.0-32.0); MCHC 30.5 g/dL (32.0-37.0); MCV 99.7 FL (80.0-97.0); Mean Platelet Volume 9.7 FL (9.5-12.2); Monocytes # (A) 0.52 X 10*3/uL (0.20-1.00); Monocytes % (A) 9.8 %; NRBC Per 100 WBC 0 X 10*3/uL (0.00-0.01); Neutrophils # (A) 3.31 X 10*3/uL (1.80-7.70); Neutrophils % (A) 62.7 %; Platelet Count 278 X 10*3/uL (140-440); RBC 3.88 X 10*6/uL (4.10-5.20); RDW 12.6 % (11.5-14.5); WBC 5.28 X 10*3/uL (4.50-10.00)
[2023-10-14 17:42] LABS: Erythrocyte Sedimentation Rate 1 mm/Hr (0-30)
== END | disposition home or self-care (01) ==
LOC: LABWHC1 11:54
PROVIDERS: ATTEND Orthopaedic Surgery
DX: M25.512 Pain in left shoulder (principal); M25.511 Pain in right shoulder; Z96.611 Presence of right artificial shoulder joint
CPT/HCPCS: 36415; 85025; 85652; 86140

== ENCOUNTER 2024-07-19 04:44 | Emergency (ER) | payer MEDICARE, OTHER ==
[2024-07-19] MEDS: MORPHINE SULFATE 4 MG/ML SYRINGE IM STA (05:35)
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
--- NOTE | 2024-07-19 05:59 | XR ---
EXAMINATION TYPE: XR shoulder complete LT DATE OF EXAM: 07/19/2024 CLINICAL HISTORY: Atraumatic shoulder pain. TECHNIQUE: Three views of the left shoulder are obtained. COMPARISON: None. FINDINGS: There is no acute fracture/dislocation evident in the left shoulder. Moderate to severe na rrowing and mild to moderate superior capsular hypertrophy at the acromioclavicular joint. There is n arrowing and spurring inferior glenohumeral joint. Visualized ribs are intact. IMPRESSION: As above. [facility], , 07/19/2024 5:57 AM
[2024-07-19] MEDS: HYDROmorphone 1 MG/ML 1 ML SYRINGE IM STA (06:19)
[2024-07-19 06:50] VITALS: BP 140/81; PULSE 99; RESP 19; TEMP 98
== END 2024-07-19 06:59 | disposition home or self-care (01) ==
LOC: EC 04:44
DX: S46.912A Strain of unspecified muscle, fascia and tendon at shoulder and upper arm level, left arm, initial encounter (principal); M19.012 Primary osteoarthritis, left shoulder; Z88.8 Allergy status to other drugs, medicaments and biological substances; Z88.1 Allergy status to other antibiotic agents; Z87.891 Personal history of nicotine dependence; X50.0XXA Overexertion from strenuous movement or load, initial encounter
CPT/HCPCS: 73030; 99283; 96372 ×2; J2270; J1171